=== PATIENT | female | born 1970 | race Caucasian/White ===

== ENCOUNTER 2020-12-13 13:00 | Outpatient (RCR) | payer MEDICAID, SELFPAY ==
--- NOTE | 2020-11-11 09:28 | HP.PTEVAL ---
Patient's Visit Information DUKE BERRY is a 50 year old F referred to Physical Therapy by Dr. Major Scherer MD with a diagnosis of L sided sciatica, chronic low back pain. Date of Evaluation: 11/11/20 Physical Therapist: Jordan Mcclellan DPT - Visit Plan Frequency: 2x /Week Duration: 4-6 Weeks Plan: Start with manual traction progressing to mechanical traction if needed. Add in netural spine core stability exercises. Progress HEP as tolerated. Instruct in progressive walking program as well. - Subjective Pt is here today for her initial evaluation with diagnosis of left sided sciatica with chronic low back pain. Pt. reports that she does not think that her pain is stemming from her back, but is from her leg. She reports having L calf pain that has N/T involvement from lateral calf into her foot. Mostly on L side. Pt. reports symptoms have been going on for several months, but has been prgressively getting worse. She denies muscle weakness or her L leg giving out on her. Vocation: [employer] I do it all. Increases pain: all movements, standing, lifting. Decreases symptoms: nothing. She has been taking gabapentin- no relief. She has been working less as well. Xrays- patient did not know what the readouts were. Pt. is hopeful to reduce symptoms in order to get back to work without limitations. - Pain L calf Pain Intensity (Out of 10): 8 Pain Intensity Range: 6, 10 - Objective POSTURE: Pt. has sligth slouched posture, anterior pelvic tilt, FH posture. Pt. PALPATION: Pt. has tenderness in her calf, but not severe. Pt. has not pain with palpation of lumbar spine. or gluteal region along piriformis. No post thigh pain as well. NEURO: Pt. has decreased sensation at L lateral distal LE and distal ankle. Pt. has decreased dTR of achilles and patellar on L side 1+. 2+ on RLE. Pt. is able to rise on heels and toes. ROM: LUMBAR SPINE: flexion- full motion increase NW LLE (distal thigh and calf). Extension- min loss NE, SB full NE bilaterally. Rotation- full motion NE bilaterally. Hips: Full motion throughout including good IR motion without increase in symptoms. Pt. does have tight HS bilaterally. Tight calves bilaterally, (this did not cause increase in symptoms). MMT: Overall decent strength in BLEs. Pt. did decribe increased symptoms with L knee extension (thoughout LLE). 5-/5 throughout BLEs, no myotomal weakness noted. Core- Lower abdominals- 4-/5, upper abdominal 4-/5. GAIT: Pt. has general flexed posture with gait, no large gait defects noted. Pt. has normal arm swing. She does report incerased in symptoms with walking. STAIRS: reciprocal pattern, increased pain during L stance phase. - Special Tests L/S Slump test left side: Positive L/S Slump test right side: Negative L/S Left Straight Leg Raise: Positive L/S Right Straight Leg Raise: Negative Lumbar Standing: Flexion - Mechanical Response: No effect Lumbar Standing: Flexion - Symptoms During Testing: Increases Lumbar Standing: Flexion - Symptoms After Testing: No worse Lumbar Standing: Extension - Mechanical Response: No effect Lumbar Standing: Extension - Symptoms During Testing: Increases Lumbar Standing: Extension - Symptoms After Testing: No worse Lumbar Standing: Right Side Glides - Mechanical Response: No effect Lumbar Standing: Right Side [place] - Symptoms During Testing: No effect Lumbar Standing: Right Side [place] - Symptoms After Testing: No effect Lumbar Standing: Left Side [place] - Mechanical Response: No effect Lumbar Standing: Left Side [place] - Symptoms During Testing: No effect Lumbar Standing: Left Side [place] - Symptoms After Testing: No effect - Goals Goal 1:: LTG: Pt. to be educated in proper neutral spine core strengthening exercises for HEP. Goal Time Frame: 4-6 Weeks Goal 2:: STG: Pt. to be able to walk throughout the house with 0-2/10 pain in LLE allowing for improved quality of life. Goal Time Frame: 2-4 Weeks Goal 3:: LTG: Pt. to return to work with 0-2/10 pain in L calf allowing for increased tolerance to all work related activities. Goal Time Frame: 4-6 Weeks Goal 4:: LTG: Pt. to improved low back Oswestry disability score to <25%. Goal Time Frame: 4-6 Weeks Goal 5:: STG: Pt. to have decreased severity of L calf pain to 0-3/10 pain. Goal Time Frame: 2-4 Weeks Goal 6:: LTG: Pt. to have increased core strength increased to 4+/5 both upper and lower abdominals. Goal Time Frame: 4-6 Weeks - Rehabilitation Potential Physical Therapy Diagnosis: Pt. has signs and symptoms consistent with L sided sciatica with neural compenent. I was able to increase in symptoms with slump testing, and SLR testing. I was also able to reduce symptoms with manual lumbar traction, to the point where she had relief with walking. She did not have a hypomobile segment and symptoms radiated past her knee ruling out the success rate with manipulation and did not have a positive response with repeated motions. I would suggest that she initiate with manual lumbar traction, progressing to mechanical if needed. Once resolved progress to neutral spine core stability exercises. Rehabilitation Potential: Good - Anticipated Interventions Patient/Client Instruction: Educate patient on: Condition, Plan of Care, Risk Factors, Benefits of Fitness Program For the Purpose of:: To improve health and function, To foster healthy habits, To improve decision making, To facilitate caregiver knowledge, To improve self management, To prevent re-injury, To improve ability to perform tasks related to life management Therapeutic Exercise to Include: Strength training, Power training, Endurance training, Agility training, Body mechanics, Postural training, Flexibilty training, Passive ROM, Active ROM, Dynamic Lumbar Stabilization For the Purpose of:: To decrease pain, To decrease swelling/inflammation, To increase ROM, To improve nutrient delivery to tissue, To increase oxygenation perfusion, To improve muscle performance and motor function, To improve ability to perform ADL's, To increase tolerance to activity/condition/position, To improve health of tissue, To decrease soft tissue restriction, To increase flexibility/ROM Manual Therapy Techniques to Include: Mobilization, Passive ROM Comment: manual traction For the Purpose of:: To decrease pain, To decrease swelling/inflammation, To increase ROM, To improve nutrient delivery to tissue, To increase oxygenation perfusion, To improve muscle performance and motor function, To decrease soft tissue restriction, To increase flexibility/ROM Pelvic traction supine: Yes For the Purpose of:: To decrease pain, To increase ROM, To improve nutrient delivery to tissue, To increase oxygenation perfusion, To improve muscle performance and motor function Thank you for the opportunity to evaluate your patient. For Medicare and Medicare HMO plans, please review the plan of care and approve it. It will need to be FAXED BACK to us at [phone] for Medicare purposes. For Medicare only, by signing this I certify the plan of care. Please let me know if there are questions or concerns regarding this plan of care. Physician Signature: Date:
--- NOTE | 2021-02-20 14:45 | HP.PT.NRP ---
DUKE BERRY was seen in my office for initial evaluation on 11/11/20. The following Plan of Care was established for this patient: Initial Frequency: 2x /Week Initial Duration: 4-6 Weeks Patient/Client Instruction: Educate patient on: Condition, Plan of Care, Risk Factors, Benefits of Fitness Program For the Purpose of:: To improve health and function, To foster healthy habits, To improve decision making, To facilitate caregiver knowledge, To improve self management, To prevent re-injury, To improve ability to perform tasks related to life management Therapeutic Exercise to Include: Strength training, Power training, Endurance training, Agility training, Body mechanics, Postural training, Flexibilty training, Passive ROM, Active ROM, Dynamic Lumbar Stabilization For the Purpose of:: To decrease pain, To decrease swelling/inflammation, To increase ROM, To improve nutrient delivery to tissue, To increase oxygenation perfusion, To improve muscle performance and motor function, To improve ability to perform ADL's, To increase tolerance to activity/condition/position, To improve health of tissue, To decrease soft tissue restriction, To increase flexibility/ROM Manual Therapy Techniques to Include: Mobilization, Passive ROM Comment: manual traction For the Purpose of:: To decrease pain, To decrease swelling/inflammation, To increase ROM, To improve nutrient delivery to tissue, To increase oxygenation perfusion, To improve muscle performance and motor function, To decrease soft tissue restriction, To increase flexibility/ROM Pelvic traction supine: Yes For the Purpose of:: To decrease pain, To increase ROM, To improve nutrient delivery to tissue, To increase oxygenation perfusion, To improve muscle performance and motor function This patient was last seen in our office 12/13/20. Pertinent comments regarding their Physical therapy will appear below: Pt. was seen in PT for her L sided sciatica. She was last seen on 12/13/20 and had canceled or did not show up for her last few appointments. She was having intermittent time of reduced symptoms with prone lying. She would report abolishment of symptoms 1 day with prone lying and prone lumbar extension, but then the next would have no change. She was still having pain with most upright activities including work. She has not been seen in several months and will be DC from PT at this point in time. At this point I will be discontinuing this patient from physical therapy. I would be happy to see this patient again in the future if found appropriate by the physician. Thank you! MIGUEL CharlesT
== END 2020-12-13 19:00 | disposition home or self-care (01) ==
LOC: PT 13:00
PROVIDERS: PCP Family Medicine; Referring Provider Family Medicine; Visit Provider Family Medicine
DX: M54.42 Lumbago with sciatica, left side (principal); G89.29 Other chronic pain
CPT/HCPCS: 97110; 97140; 97161